=== PATIENT | male | born 1990 | race Caucasian/White ===

== ENCOUNTER 2017-01-30 03:58 | Emergency (ER) | payer SELFPAY ==
--- NOTE | ~2017-01-30 | ER ---
ADMIT: 01/30/2017 RM/LOC: ER [facility] MR#: [id number] [address] [id number] QUENTIN CORDOVA [address] [place] [address] Emergency Room Report SEX: M AGE: 26 : 1990 DATE: 01/30/2017 CHIEF COMPLAINT: Panic attack. HISTORY OF PRESENT ILLNESS: The patient is a 26-year-old male, comes in for a couple hours of a panic attack. 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 He is not aware of any triggers or anything that would have brought this on this evening. He has had this happen several times in the past, but never to this extent. He feels like his heart is beating hard and fast, and he feels like he has tingling in all his fingers. He admits that he cannot stop shaking. REVIEW OF SYSTEMS: He has not had any difficulty breathing or chest pain and has had no recent illness, fevers, or chills. PAST MEDICAL HISTORY: No chronic medical conditions. MEDICATIONS: None. ALLERGIES: NONE. PHYSICAL EXAMINATION: GENERAL: The patient is alert, does appear anxious. HEENT: Head is atraumatic. Pupils are equal, round, and reactive to light. Extraocular muscles are intact. Airway is patent. HEART: Regular rate and rhythm. LUNGS: Clear to auscultation. ABDOMEN: Soft. NEUROLOGIC: The patient is having some involuntary muscle contractions/shaking, and this is consistent with his appearance of anxiety. EMERGENCY DEPARTMENT COURSE: The patient was instructed to try to slow his breathing down and relax, and he was given p.o. Valium. After approximately 20 to 30 minutes, he had significant improvement in his symptoms. He is discharged home and is going to call for a ride. He was given a prescription for Xanax 0.25 mg to be used as needed for panic attacks. DIAGNOSIS: Panic attack. Abhay Pennington MD/ sushil JOB #: [id number] CC: Abhay Pennington MD, Attending Physician
== END 2017-01-30 05:05 | disposition home or self-care (01) ==
LOC: ER 03:58
DX: F41.0 Panic disorder [episodic paroxysmal anxiety] (principal); Z88.8 Allergy status to other drugs, medicaments and biological substances; Z79.899 Other long term (current) drug therapy